=== PATIENT | male | born 1985 | race Caucasian/White ===

== ENCOUNTER → 2023-12-02 | Outpatient (REF) | payer BC, SELFPAY | LOC: DHSLP | PROVIDERS: ATTENDING PHYSICIAN Internal Medicine Critical Care Medicine; FAMILY PHYSICIAN Family Medicine | DX: G47.30 Sleep apnea, unspecified (principal); R06.83 Snoring | CPT/HCPCS: 95810 ==

== ENCOUNTER → 2024-02-17 08:15 | Outpatient (REF) | payer BC, SELFPAY | LOC: DHSLP 08:15 | PROVIDERS: ATTENDING PHYSICIAN Internal Medicine Critical Care Medicine; FAMILY PHYSICIAN Family Medicine | DX: G47.33 Obstructive sleep apnea (adult) (pediatric) (principal); G47.00 Insomnia, unspecified | CPT/HCPCS: 95810 ==

== ENCOUNTER → 2024-02-18 07:00 | Outpatient (REF) | payer BC, SELFPAY | LOC: DHSLP 07:00 | PROVIDERS: ATTENDING PHYSICIAN Internal Medicine Critical Care Medicine; FAMILY PHYSICIAN Family Medicine | DX: G47.11 Idiopathic hypersomnia with long sleep time (principal) | CPT/HCPCS: 95805 ==

== ENCOUNTER 2025-04-27 23:30 | Emergency (ER) | payer BC, SELFPAY ==
[2025-04-27 23:36] VITALS: BP 115/86
--- NOTE | 2025-04-28 01:18 | ED.GENMED ---
History of Present Illness
General
Chief Complaint: Alcohol Problem
Source: patient and spouse
Exam Limitations: none
Time Seen by Provider: 04/27/25 23:58
Nursing documentation reviewed up to this point in time: agreed with
History of Present Illness
History of Present Illness:
40-year-old male past medical history of hypertension presenting to the emergency department today after admitting to drinking too much alcohol more than his normal amount. Does not drink daily. [place] very lightheaded passed out at home in the
garage does not have great memory of this may have hit his head also an episode of vomiting since. Denies any chest pain shortness of breath numbness weakness no neck pain.
Past History
Past History
ED Past Medical History: HTN, Other (ADD, aortic bicuspid valve, aortic insufficiency) and Other (History of migraines)
ED Past Surgical History: Orthopedic (Left elbow surgery and right fifth knuckle surgery)
Social History
Tobacco: Non-smoker
Drug: None
Personal: Single
Living: with family
Employment: Other (Student)
Review of Systems
Review of Systems
Allergies reviewed?: Yes
All Other Systems: ROS reviewed and negative except as documented in HPI and ROS
Phy Exam
Physical Exam
Physical Exam:
GENERAL: Alert , in no apparent distress
EYE: pupils equal and reactive
NECK: Supple, no significant adenopathy.
ENT: o/p clr, mmm.
CARDIAC: Regular rate and rhythm .
LUNGS: Clear breath sounds bilaterally, no acute respiratory distress, no wheezes/rales/rhonchi
ABDOMEN: Soft, without focal tenderness, no r/g, no cvat
NEUROLOGICAL: Alert and oriented, no focal neuro deficits
SKIN: Warm and dry, skin intact.
MUSCULOSKELETAL: No edema, well perfused.
PSYCH: Normal and appropriate interaction.
Scores
Withdrawal Assessment of Alcohol
Withdrawal Assessment Completed?: No
Course
Orders/Labs/Results
Orders:
Orders
04/27/25 23:34
Ondansetron Injectable [Zofran] 4 mg .ROUTE .STK-MED ONE
04/28/25 00:50
CT Head W/o Iv Contrast Urgent
Comment:
Reason For Exam: fall hit head
0.9% Sodium Chloride 1000 ml [Nss] 1,000 ml IV BOLUS
Ondansetron Injectable [Zofran] 4 mg IV NOW STA
04/28/25 01:20
CT Cervical Spine W/o Iv Contr Urgent
Comment:
Reason For Exam: fall hit head intoxicated
04/28/25 01:21
CBC/With Diff [Complete Blood Count/With Diff] Urgent
CMP [Comprehensive Metabolic Panel] Urgent
Abnormal Lab Results
04/28/25
01:21
WBC 12.7 H 10^3/uL
(4.8-10.8)
MPV 10.6 H fL
(7.4-10.4)
Absolute Neuts (auto) 10.0 H 10^3/uL
(1.4-6.5)
Neutrophils % 78.9 H %
(42.2-75.2)
Lymphocytes % 17.5 L %
(20.5-51.1)
Glucose 113 H mg/dl
(70-99)
Albumin 5.1 H g/dl
(3.5-5.0)
04/28/25 01:21
04/28/25 01:21
Vital Signs
Initial and Last Documented VS:
Initial Vital Signs
Temp Pulse Resp BP Pulse Ox
97.7 F 83 16 115/86 99
04/27/25 23:36 04/27/25 23:36 04/27/25 23:36 04/27/25 23:36 04/27/25 23:36
Last Documented Vital Signs
Temp Pulse Resp BP Pulse Ox
97.7 F 98 18 114/73 95
04/27/25 23:36 04/28/25 02:22 04/28/25 02:22 04/28/25 02:22 04/28/25 02:22
MDM/Problems Addressed
MDM/Problems Addressed:
40-year-old male presenting to the emergency department today after drinking a large amount of alcohol and falling to the ground. Did not hit his head also has had some nausea and vomiting. On arrival vital signs are normal patient no distress
patient with improved symptoms after receiving Zofran CT scan of the head and neck without emergent findings labs unremarkable patient stable for discharge at this time. Return precautions given.
*Pulse Oximetry
SaO2: 99
Oxygen Mode of Delivery: Room air
Patient hypoxic: no (99)
*Critical Care Note
Total Time (30-74mins, 75-104mins- exclusive of procedures): Not Applicable
ED Attending Note
-
Portions of this chart may have been created with voice recognition software.� Occasional wrong word or��sound alike� substitutions may have occurred due to the inherent limitations of voice recognition software.
Discharge Plan
Departure
Patient Disposition: Home (Routine Discharge)
Date of Disposition: 04/28/25
Time of Disposition: 03:17
Patient with high blood pressure during this ER visit?: No
Condition: Good
Covid-19: Not Applicable
Discharge Problem:
Alcohol intoxication
Instructions: Alcohol Poisoning (DC)
Prescriptions:
No Action
metoprolol succinate 50 MG tablet extended release 24 hr
50 mg PO BID
lisinopril 20 MG tablet
20 mg PO DAILY
dextroamphetamine-amphetamine 10 MG tablet
30 mg PO DAILY
valacyclovir [Valtrex] 500 MG tablet
500 mg PO DAILY
Referrals:
Olga Briones MD [Family Provider, Family Practice]
Activity Restrictions/Additional Instructions:
You came to the emergency department today and had a reassuring assessment with normal CT scan of the head and neck as well as labs. Please drink plenty of fluids and abstain from any further alcohol use. Return for any worsening, new or
concerning symptoms.
Interventions
Interventions:
*Risk Screen - Suicide Last Done: 04/27/25 23:36
*General Assessment Last Done: 04/27/25 23:36
*Neglect/Abuse Screening Last Done: 04/27/25 23:36
*ED- Fall Risk Assessment Last Done: 04/27/25 23:36
*ED COVID-19 Vaccine History Last Done: 04/27/25 23:36
*ED Influenza Vaccine History Last Done: 04/27/25 23:36
ED- Neurological Assessment Last Done: 04/27/25 23:53
ED-Psychological Assessment Last Done: 04/27/25 23:53
Discharge Date and Time
Print Language: UKRAINIAN
[2025-04-28] MEDS: NSS 1000 IV (01:29)
[2025-04-28] MEDS: ZOFRAN 4 MG IV (01:30)
[2025-04-28 01:32] LABS: Hematocrit 42.8 % (39.0-52.0); Hemoglobin 15.1 g/dL (13.0-18.0); Mean Corp Hgb Conc. 35.3 g/dL (33.0-37.0); Mean Corpuscular Volume 86.1 fL (80.0-94.0); Nucleated Red Blood Cells % 0 % (-); Platelet Count 240 10^3/uL (130-400); Red Cell Dist. Width 11.9 % (11.5-14.5)
[2025-04-28 02:04] LABS: ALT (SGPT) 30 U/L (0-50); AST (SGOT) 23 U/L (17-59); Albumin 5.1 g/dl (3.5-5.0); Alkaline Phosphatase 64 U/L (38-126); Blood Urea Nitrogen 17 mg/dl (9-20); Calcium 9.4 mg/dl (8.4-10.2); Carbon Dioxide 23 mmol/L (22-30); Chloride 106 mmol/L (98-107); Estimated Creatinine Clearance > 125 ml/min; Glucose 113 mg/dl (70-99); Potassium 4.5 mmol/L (3.5-5.1); Sodium 142 mmol/L (135-145); Total Protein 8.0 g/dl (6.3-8.2); eGFR > 60.00
[2025-04-28 02:22] VITALS: BP 114/73
[2025-04-28 03:51] VITALS: BP 124/65
== END 2025-04-28 03:53 | disposition home or self-care (01) ==
LOC: EMR 23:30
PROVIDERS: Physician Assistant; EMERGENCY PHYSICIAN Student in an Organized Health Care Education/Training Program; FAMILY PHYSICIAN Family Medicine
DX: F10.129 Alcohol abuse with intoxication, unspecified (principal); I10 Essential (primary) hypertension; Q23.81 Bicuspid aortic valve; I35.1 Nonrheumatic aortic (valve) insufficiency; F98.8 Other specified behavioral and emotional disorders with onset usually occurring in childhood and adolescence
CPT/HCPCS: 99284; 96374; 96361; 70450; 72125; 80053; 85025